=== PATIENT | male | born 1955 | race Caucasian/White ===

== ENCOUNTER 2017-12-15 12:46 | Inpatient (IN) | payer SELFPAY ==
[2017-12-15 14:05] LABS: Troponin I 0.011 ng/mL (< 0.028)
[2017-12-15 17:43] LABS: Troponin I 0.016 ng/mL (< 0.028)
[2017-12-15] MEDS ORDERED: Ondansetron ODT 4 MG TAB PO PRN (18:55)
[2017-12-15] MEDS ORDERED: Dextrose 50% Abboject 50 ML SYRINGE SLOW IVP PRN (18:55)
[2017-12-15] MEDS ORDERED: hydrALAZINE 20 MG/ML VIAL SLOW IVP PRN (18:55)
[2017-12-15] MEDS ORDERED: Dextrose 5% in Water 1,000 ML IV PRN (18:55)
[2017-12-15] MEDS ORDERED: Ondansetron HCl/PF 4 MG/2 ML Vial IVP PRN (18:55)
[2017-12-15] MEDS ORDERED: Acetaminophen 500 MG TAB PO PRN (18:55)
[2017-12-15] MEDS ORDERED: HumaLOG 300 UNITS/3 ML VIAL SC PRN ×2 (18:55)
[2017-12-15] MEDS: Famotidine 20 MG TAB PO SCH (20:57)
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
[2017-12-16] MEDS: cloNIDine 0.1 MG TAB PO PRN ×2 (00:01→09:21)
[2017-12-16 05:25] LABS: Hemoglobin A1c 6.2 % (4.0-6.0)
[2017-12-16 05:38] LABS: Eosinophils 2 % (0-10); Hemoglobin 15.2 g/dL (14.0-18.0); Lymphocytes 26 % (21-51); MDiff Complete? YES; Mean Corpuscular Volume 94.4 fL (78.0-98.0); Mean Platelet Volume 6.9 fL (7.4-10.4); Monocytes 11 % (0-10); Neutrophil 60 % (42-75); Nucleated RBC 1 % (0); PLT Morphology Comment Appears Adequate; Platelet Count 166 thou/uL (130-400); RBC Distribution Width 13.5 % (11.5-14.5); Red Blood Cell (RBC) Count 4.61 mill/uL (4.70-6.10); White Blood Cell (WBC) Count 6.3 thou/uL (4.8-10.8)
[2017-12-16 05:46] LABS: ALT (SGPT) 59 U/L (8-55); AST (SGOT) 45 U/L (5-34); Albumin 3.8 g/dL (3.4-4.8); Alkaline Phosphatase 60 U/L (40-150); Anion Gap 14 mmol/L (10-20); BUN (Urea Nitrogen) 15 mg/dL (8.4-25.7); Bilirubin, Total 1.2 mg/dL (0.2-1.2); Calc. Creatinine Clearance 169 mL/min (70-130); Calcium 8.9 mg/dL (7.8-10.44); Carbon Dioxide 28 mmol/L (23-31); Chloride 101 mmol/L (98-107); Estimated GFR-MDRD 84; Globulin 2.6 g/dL (2.4-3.5); Glucose 126 mg/dL (80-115); Protein, Total 6.4 g/dL (5.8-8.1); Sodium 139 mmol/L (136-145)
[2017-12-16 06:24] VITALS: BMI 42.2
[2017-12-16] MEDS: Furosemide 20 MG/2 ML VIAL SLOW IVP SCH ×2 (06:24→14:09)
[2017-12-16] MEDS ORDERED: Regadenoson 0.4 MG/5 ML SYRINGE ONE (08:06)
[2017-12-16] MEDS: Aspirin 325 MG TAB PO SCH (09:21)
[2017-12-16] MEDS: Famotidine 20 MG TAB PO SCH ×2 (09:21→20:46)
--- NOTE | 2017-12-16 14:59 | NM ---
NUCLEAR MEDICINE STRESS ONLY MYOCARDIAL PERFUSION SCAN: Date: 12-16-17 History: Chest pain, history of coronary artery disease. Technique: SPECT imaging of the left ventricular myocardium is obtained during stress following the i ntravenous administration of 28.1 mCi Technetium 99M Sestamibi. FINDINGS: No perfusion defect is seen on the SPECT imaging of the left ventricular myocardium. Left ventricular wall motion appears normal. Left ventricular ejection fraction is estimated at 56% with an EDV of 19 1 ml and an ESV of 85 ml. IMPRESSION: Unremarkable stress only Nuclear Medicine myocardial perfusion scan. POS: [facility]
--- NOTE | 2017-12-16 15:35 | PDOC.PN ---
- Subjective Encounter Start Date: 12/16/17 Encounter Start Time: 15:35 Subjective: f/u for new-onset pulmonary edema tx with Lasix now resolving. 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 Feels much better today. No SOB. - Objective Resuscitation Status: Resuscitation Status FULL:Full Resuscitation MAR Reviewed: Yes Vital Signs & Weight: Vital Signs (12 hours) Temp Pulse Resp BP BP Pulse Ox 12/16/17 09:21 216/99 H 12/16/17 08:56 98.5 F 59 L 18 216/99 H 98 12/16/17 08:00 98.5 F 59 L 18 98 12/16/17 04:22 57 L 218/106 H 12/16/17 04:00 97.5 F L 57 L 20 218/106 H 97 Weight Weight 311 lb 4.8 oz I&O: 12/15/17 12/16/17 12/17/17 06:59 06:59 06:59 Intake Total 300 Output Total 550 Balance -250 Result Diagrams: 12/16/17 05:00 12/16/17 05:00 Additional Labs: Accuchecks 12/16/17 12/16/17 12/15/17 12:46 05:44 20:34 POC Glucose 197 H 127 H 165 H Laboratory Tests 12/15/17 12/15/17 12/16/17 10:34 10:34 05:00 Hemoglobin A1c AST 51 H 45 H ALT 71 H 59 H B-Natriuretic Peptide 455.1 H 12/16/17 12/16/17 05:00 05:00 Hemoglobin A1c 6.2 H AST ALT B-Natriuretic Peptide 658.9 H Radiology Reviewed by me: Yes (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, EF 56%) EKG Reviewed by me: Yes (Tele - SR) Phys Exam - Physical Examination Constitutional: NAD HEENT: PERRLA, sclera anicteric, oral pharynx no lesions Neck: no nodes, no JVD, supple, full ROM Respiratory: no wheezing, no rales, no rhonchi, clear to auscultation bilateral S1, S2 Cardiovascular: RRR, no significant murmur, no rub, gallop Gastrointestinal: soft, non-tender, no distention, positive bowel sounds mild edema Musculoskeletal: pulses present Neurological: non-focal, normal sensation, moves all 4 limbs Psychiatric: normal affect, A&O x 3 Skin: no rash, normal turgor, cap refill <2 seconds Dx/Plan (1) New onset of congestive heart failure Code(s): I50.9 - HEART FAILURE, UNSPECIFIED Status: Acute Comment: 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, convert Lasix 40mg daily, 2D echo pending (2) HTN (hypertension) Code(s): I10 - ESSENTIAL (PRIMARY) HYPERTENSION Status: Chronic Qualifiers: Hypertension type: essential hypertension Qualified Code(s): I10 - Essential (primary) hypertension Comment: Labile, resume home BP regimen, titrate to clinical response (3) DM II (diabetes mellitus, type II), controlled Code(s): E11.9 - TYPE 2 DIABETES MELLITUS WITHOUT COMPLICATIONS Status: Chronic Comment: Resume Metformin, ISS, ADA, A1C 6.2 (4) CAD (coronary artery disease) Code(s): I25.10 - ATHSCL HEART DISEASE OF [place] CORONARY ARTERY W/O ANG PCTRS Status: Chronic Comment: Hx of CAD by LHC, medical mgmt, ASA daily - Plan out of bed/ambulate, DVT proph w/SCDs Stable overall -: Resume home antihypertensive regimen -: Change Lasix 40mg daily -: Continue ASA daily -: AM lab: Lipid profile, BMP * .
[2017-12-16] MEDS ORDERED: metFORMIN 850 MG TAB PO SCH (17:00)
--- NOTE | 2017-12-16 20:56 | CT ---
CTA ABDOMEN WITH CONTRAST WITH 3D VOLUME RENDERIN12/16/17 CLINICAL HISTORY: Pulmonary edema. Renal artery insufficiency. FINDINGS: The imaged lower lung zones reveal no evidence of consolidation. There is no pleural effusion visuali zed. The contrast opacified abdominal aorta is nonaneurysmal. There is mild calcification approximating th e origin of the celiac axis and superior mesenteric artery. There is minimal atherosclerosis at the o rigin of the left renal artery, but otherwise, no significant stenosis of either renal artery. The im aged proximal iliac arteries are patent. Nonspecific borderline sized abdominal lymph nodes are prese nt. IMPRESSION: There is no evidence of renal artery stenosis, bilaterally. Scattered atherosclerotic vascular disease as discussed above. POS: [facility]
[2017-12-16] MEDS ORDERED: Metoprolol Tartrate 100 MG TAB PO SCH (21:00)
[2017-12-16] MEDS ORDERED: Atorvastatin Calcium 40 MG TAB PO SCH (21:00)
[2017-12-16] MEDS ORDERED: Lisinopril 20 MG TAB PO SCH (21:00)
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
[2017-12-17] MEDS: cloNIDine 0.1 MG TAB PO PRN (03:41)
[2017-12-17 05:35] LABS: Anion Gap 14 mmol/L (10-20); BUN (Urea Nitrogen) 13 mg/dL (8.4-25.7); Calc. Creatinine Clearance 161 mL/min (70-130); Calcium 8.8 mg/dL (7.8-10.44); Carbon Dioxide 25 mmol/L (23-31); Cardiac Risk 6.9 (Less than 4.5); Chloride 100 mmol/L (98-107); Cholesterol 241 mg/dl (< 200 Desired); Estimated GFR-MDRD 81; Glucose 133 mg/dL (80-115); HDL Cholesterol 35 mg/dL (>60 Neg Risk); LDL Cholesterol, Calculated 169 mg/dL; Potassium 3.4 mmol/L (3.5-5.1); Sodium 136 mmol/L (136-145); Triglycerides 186 mg/dL (Less than 150)
[2017-12-17] MEDS ORDERED: Furosemide 40 MG TAB PO SCH (07:30)
[2017-12-17] MEDS ORDERED: metFORMIN 850 MG TAB PO SCH (08:00)
[2017-12-17] MEDS ORDERED: Carvedilol 6.25 MG TAB PO SCH (08:00)
[2017-12-17] MEDS: Aspirin 325 MG TAB PO SCH (08:01)
[2017-12-17] MEDS: Famotidine 20 MG TAB PO SCH (08:01)
[2017-12-17] MEDS ORDERED: Ubidecarenone 50 MG CAP PO SCH (09:00)
[2017-12-17] MEDS ORDERED: Potassium Chloride 20 MEQ TAB PO SCH (10:00)
[2017-12-17] MEDS ORDERED: hydrALAZINE 25 MG TAB PO SCH ×2 (10:00→21:00)
[2017-12-17 11:12] VITALS: TEMP 97.6
[2017-12-17 13:44] VITALS: BP 137/71
--- NOTE | 2017-12-17 14:09 | DIS ---
DATE OF ADMISSION: 12/15/2017 DATE OF DISCHARGE: 12/17/2017 DISCHARGE DIAGNOSES: 1. New onset diastolic congestive heart failure with ejection fraction of 50-55%. 2. Hypertension urgency, resolved. 3. Hypertension, labile. 4. Diabetes mellitus type 2, controlled. 5. Coronary artery disease, mild, medically managed. CONSULTATIONS: Dr. Quinones with Cardiology Service. PERTINENT LABORATORY AND X-RAY FINDINGS: Potassium ranged between 3.4-4.0, hemoglobin A1c 6.2, BNP r anged between 455-659, total cholesterol 241, triglycerides 186, HDL 35, LDL 169. Portable chest x-ray dated 12/15/2017 showed bilateral pulmonary edema. Cardiolite stress test dated 12/16/2017 showed no evidence of reversible or fixed ischemia with calculated ejection fraction 56%. CT angiogram of the abdomen dated 12/16/2017 showed no evidence of renal artery stenosis. A 2D tra nsthoracic echocardiogram dated 12/16/2017 showed ejection fraction of 50-55%. Diastolic dysfunction . Moderate left atrial enlargement. 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 The patient was given IV Lasix as well as oxygen supplementation and monitored for clinic al response. The patient had rapid clinical improvement with diuretic therapy proceeding with a card iac workup to include cardiac stress testing showing no evidence for reversible or fixed ischemia. T he patient underwent 2D transthoracic echocardiogram evaluation showing preserved ejection fraction i n the 50-55% range with diastolic dysfunction. The patient was evaluated by the Cardiology Service [facility] recommendations for tighter blood pressure control as well as treatment for hyperlipidemia. The patient was transitioned from metoprolol to Coreg due to sinus bradycardia and received additional hy dralazine 50 mg b.i.d. for more optimal blood pressure control. The patient transitioned to oral Las ix 40 mg daily, and will continue indefinitely. Overall, the patient did remain clinically stable du ring the hospital course, tolerating regular oral intake, voiding appropriately. Telemetry monitorin g showed sinus bradycardia with heart rates in the 50s to 60s without acute arrhythmia. I have exami yobani the patient at the discharge and discussed followup instructions, at which point the patient verb alized understanding and agreement. The patient ready for discharge 12/17/2017. DISCHARGE MEDICATIONS: 1. Lisinopril 40 mg p.o. at bedtime. 2. Metformin 850 mg p.o. b.i.d. 3. Omeprazole 2.5 mg p.o. at bedtime. 4. Coenzyme Q10 100 mg p.o. daily. 5. Lipitor 40 mg p.o. at bedtime. 6. Coreg 12.5 mg p.o. b.i.d. 7. Lasix 40 mg p.o. daily. 8. Hydralazine 50 mg p.o. b.i.d. 9. Potassium chloride 20 mEq p.o. b.i.d. FOLLOWUP: The patient will follow up with Dr. Chiang within 7 days of discharge. The patient cecil l follow up with Dr. Carmelo Quinones with [facility] and to call his office for appointment time and date. CONDITION ON DISCHARGE: Stable. ACTIVITY: Ad amauri. DIET: Heart healthy and ADA. CODE STATUS: Full. DISPOSITION: Home on 12/17/2017. Total time preparing and coordinating discharge is 35 minutes.
--- NOTE | 2017-12-19 10:59 | EKG ---
Test Reason : Blood Pressure : / mmHG Vent. Rate : 054 BPM Atrial Rate : 054 BPM P-R Int : 178 ms QRS Dur : 098 ms QT Int : 452 ms P-R-T Axes : 028 021 068 degrees QTc Int : 428 ms Sinus bradycardia Incomplete right bundle branch block Borderline ECG Confirmed by CLEO MANJARREZ DO ([id number]), managing editor STEVENSON ALFREDO ([id number]) on 12/19/2017 10:58:26 AM Referred By: Confirmed By:CLEO MANJARREZ DO
== END 2017-12-17 15:21 | disposition home or self-care (01) | DRG 292 ==
LOC: ERS 12:46 → 2NO 18:09
PROVIDERS: ADMIT Family Medicine; ATTEND Family Medicine
DX: I11.0 Hypertensive heart disease with heart failure (principal); Z68.41 Body mass index [BMI] 40.0-44.9, adult; I50.33 Acute on chronic diastolic (congestive) heart failure; I16.0 Hypertensive urgency; E11.9 Type 2 diabetes mellitus without complications; Z79.4 Long term (current) use of insulin; I25.10 Atherosclerotic heart disease of native coronary artery without angina pectoris; B19.20 Unspecified viral hepatitis C without hepatic coma; E66.9 Obesity, unspecified; E78.00 Pure hypercholesterolemia, unspecified; R00.1 Bradycardia, unspecified
CPT/HCPCS: 36415; 36416; 74175; 78452; 80048; 80053; 80061; 83036; 83880; 85007; 85027; 90471; 90732; 93005; 93017; 93306; 93798; 94760; A4216; A9500; G0009; J0360; J1940; J2785

== ENCOUNTER 2018-01-21 11:06 | Inpatient (IN) | payer SELFPAY ==
[2018-01-21] MEDS ORDERED: ISOVUE-370 76%-LOCM 1 ML ONE (11:14)
[2018-01-21 12:27] LABS: #Basophils 0.1 thou/uL (0.0-0.2); #Eosinphils 0.6 thou/uL (0.0-0.7); #Lymphocytes 1.8 thou/uL (1.20-3.40); #Neutrophils 6.7 thou/uL (1.40-6.50); %Basophils 0.8 % (0.0-1.0); %Eosinophils 5.8 % (0.0-10.0); %Lymphocytes 17.9 % (21.0-51.0); %Monocytes 9.5 % (0.0-10.0); %Neutrophils 66.1 % (42.0-75.0); Hemoglobin 14.9 g/dL (14.0-18.0); Mean Corpuscular Hemoglobin 31.4 pg (27.0-31.0); Mean Corpuscular Volume 95.1 fL (78.0-98.0); Mean Platelet Volume 6.8 fL (7.4-10.4); Platelet Count 269 thou/uL (130-400); RBC Distribution Width 13.3 % (11.5-14.5); Red Blood Cell (RBC) Count 4.76 mill/uL (4.70-6.10); White Blood Cell (WBC) Count 10.2 thou/uL (4.8-10.8)
[2018-01-21 12:50] LABS: Troponin I Less than 0.010 ng/mL (< 0.028)
[2018-01-21 12:51] LABS: ALT (SGPT) 37 U/L (8-55); AST (SGOT) 34 U/L (5-34); Albumin 4.2 g/dL (3.4-4.8); Alkaline Phosphatase 68 U/L (40-150); Anion Gap 16 mmol/L (10-20); BUN (Urea Nitrogen) 28 mg/dL (8.4-25.7); Bilirubin, Total 0.6 mg/dL (0.2-1.2); Calc. Creatinine Clearance 0 mL/min (70-130); Calcium 9.7 mg/dL (7.8-10.44); Carbon Dioxide 21 mmol/L (23-31); Chloride 104 mmol/L (98-107); Estimated GFR-MDRD 57; Globulin 3.7 g/dL (2.4-3.5); Glucose 146 mg/dL (80-115); Potassium 5.3 mmol/L (3.5-5.1); Protein, Total 7.9 g/dL (5.8-8.1); Sodium 136 mmol/L (136-145)
[2018-01-21] MEDS ORDERED: Aspirin 325 MG TAB ONE (13:07)
--- NOTE | 2018-01-21 13:31 | CT ---
HEAD CT WITHOUT CONTRAST: Date: 01/21/18 COMPARISON: 08/10/15. HISTORY: Dizziness, blurred vision, left hand weakness for a week, headache, assess for stroke. TECHNIQUE: Serial axial CT imaging at 5 mm intervals from vertex through skull base without contrast. FINDINGS: The visualized paranasal sinuses/mastoid air cells are well aerated. No displaced calvarial fracture. No intracranial hemorrhage, midline shift, mass effect, or ventricular enlargement. IMPRESSION: No intracranial hemorrhage. Results called to Dr. Villeda at 1227 hours on 01/21/18. CODE CR. POS: [facility]
[2018-01-21 13:33] LABS: Bilirubin Negative (Negative); Blood, Urine Negative (Negative); Clarity CLEAR (Clear); Glucose, Urine (Dipstick) Negative (Negative); Leukocyte Negative (Negative); Nitrite Negative (Negative); Protein, Urine (Dipstick) Negative (Neg-Trace); Specific Gravity, Urine 1.025 (1.002-1.036)
--- NOTE | 2018-01-21 14:17 | CT ---
CT ANGIOGRAM OF THE HEAD CT ANGIOGRAM OF THE NECK: Date: 01/21/18 HISTORY: Blurred vision. Dizziness. Roaring in the ears. Left hand weakness. COMPARISON: None. TECHNIQUE: CT angiogram of the head and neck are performed in the axial plane. Three-dimensional reformatted micheal ges are submitted for interpretation. FINDINGS: There is preservation of cortical corona-white matter differentiation. No evidence of hydrocephalus. Adequate aeration of the sinuses and mastoid air cells. Bilateral ocular lenses are appropriately loc ated. Both globes are intact. Retrobulbar fat is preserved. Aerodigestive tract is patent. No obvious mucosal abnormality. Midline fatty raphe of the tongue is p reserved. Epiglottis has a normal caliber. Preepiglottic fat is preserved. Symmetric attenuation of the parotid and submandibular glands. Thyroid gland is unremarkable. Symmetr ic attenuation of the sternocleidomastoid muscles. No evidence of lymphadenopathy by size criteria. Cervical spine vertebral body height is maintained. No fracture. Degenerative disc disease with loss of disc space height and osteophyte formation with associated central canal stenosis and foraminal na rrowing. Evaluation is limited by technique. Upper mediastinum and lung apices are unremarkable. CT ANGIOGRAM: The visualized aortic arch is unremarkable. There is common origin of the innominate artery and left carotid artery. Right Carotid: The right carotid artery, carotid bifurcation, and internal carotid artery have appro priate enhancement and luminal diameter. No significant stenosis based upon NASCET criteria. Left Carotid: The left common carotid artery, carotid bifurcation, and internal carotid artery have appropriate enhancement and luminal diameter. No significant stenosis based upon NASCET criteria. Both cervical vertebral arteries are patent throughout their course of the neck. Bilateral subclavian arteries are unremarkable. CT ANGIOGRAM HEAD: There is symmetric enhancement and luminal diameter of the distal cervical and intracranial internal carotid arteries. Mild atherosclerosis without significant narrowing in both cavernous segments and p araclinoid segments. Anterior Circulation: There is symmetric enhancement and luminal diameter of the A1 and M1 segments. Proximal A2 segments and proximal MCA branches are patent and symmetric. Posterior Circulation: Limited evaluation of both PICA artery origins. Both vertebral arteries have appropriate enhancement and luminal diameter. Basilar artery has appropriate enhancement and luminal diameter. The left and right P1 segments have symmetric enhancement and luminal diameter. There is possible thinning or dehiscence of the right jugular bulb. Neither jugular bulb appears to b e high-riding. IMPRESSION: 1. No evidence of vascular occlusion in the [place]. 2. No evidence of significant stenosis based upon NASCET criteria in either cervical carotid artery. 3. Possible dehiscence of the right jugular bulb. Results of exam discussed with Dr. Villeda on 01/21/18 at 1256 hours. CODE CR. POS: [facility]
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
[2018-01-21] MEDS ORDERED: Ondansetron ODT 4 MG TAB SL PRN (15:15)
[2018-01-21] MEDS ORDERED: Ondansetron HCl/PF 4 MG/2 ML Vial IVP PRN ×2 (15:15→15:19)
[2018-01-21] MEDS ORDERED: Acetaminophen 325 MG TAB PO PRN (15:15)
[2018-01-21] MEDS ORDERED: hydrALAZINE 20 MG/ML VIAL SLOW IVP PRN (15:19)
[2018-01-21] MEDS ORDERED: Zolpidem Tartrate 5 MG TAB PO PRN (15:19)
[2018-01-21] MEDS ORDERED: Dextrose 5% in Water 1,000 ML IV PRN (15:19)
[2018-01-21] MEDS ORDERED: Senokot 8.6 MG TAB PO PRN (15:19)
[2018-01-21] MEDS ORDERED: Artificial Tears 18 DROP/0.9 ML EA EYE PRN (15:19)
[2018-01-21] MEDS ORDERED: Loperamide HCl 2 MG CAP PO PRN (15:19)
[2018-01-21] MEDS ORDERED: Dextrose 50% Abboject 50 ML SYRINGE SLOW IVP PRN (15:19)
[2018-01-21] MEDS ORDERED: Nitroglycerin 0.4 MG TAB (25 Tab Bottle) SL PRN (15:19)
[2018-01-21] MEDS ORDERED: Chloraseptic Spray 180 ml Bottle PO PRN (15:19)
[2018-01-21] MEDS ORDERED: Sodium Chloride 0.65% Nasal 44 ML BOT EA NARE PRN (15:19)
[2018-01-21] MEDS ORDERED: Diabetic Tussin 200 MG/10 ML UDCUP PO PRN (15:19)
[2018-01-21] MEDS ORDERED: HYDROcodone/Acetaminophen 5/325 mg Tablet PO PRN (15:19)
[2018-01-21] MEDS ORDERED: HumaLOG 300 UNITS/3 ML VIAL SC PRN (15:19)
[2018-01-21] MEDS ORDERED: Ondansetron ODT 4 MG TAB PO PRN (15:19)
[2018-01-21] MEDS ORDERED: Milk Of Magnesia 30 ML UDCUP PO PRN (15:19)
[2018-01-21] MEDS ORDERED: Mag-Al 1200 mg/1200 mg/30 ML UDCUP PO PRN (15:19)
[2018-01-21] MEDS ORDERED: Loratadine 10 MG TAB PO PRN (15:19)
[2018-01-21] MEDS ORDERED: Eucerin (Mineral Oil/Petrolatum,White) 30 gm Jar TOP PRN (15:19)
[2018-01-21] MEDS: Carvedilol 6.25 MG TAB PO SCH (19:34)
[2018-01-21 19:36] VITALS: BMI 41.1
[2018-01-21] MEDS: Meclizine HCl 25 MG TAB PO SCH (21:02)
[2018-01-21] MEDS: Atorvastatin Calcium 40 MG TAB PO SCH (21:02)
[2018-01-21] MEDS: hydrALAZINE 25 MG TAB PO SCH (21:03)
[2018-01-22] MEDS: Acetaminophen 325 MG TAB PO PRN ×3 (04:14→14:02)
[2018-01-22] MEDS: Meclizine HCl 25 MG TAB PO SCH ×3 (05:36→20:43)
[2018-01-22 06:03] LABS: Anion Gap 12 mmol/L (10-20); BUN (Urea Nitrogen) 21 mg/dL (8.4-25.7); Calc. Creatinine Clearance 130 mL/min (70-130); Calcium 9.3 mg/dL (7.8-10.44); Carbon Dioxide 27 mmol/L (23-31); Cardiac Risk 5.1 (Less than 4.5); Chloride 104 mmol/L (98-107); Cholesterol 159 mg/dl (< 200 Desired); Estimated GFR-MDRD 64; Glucose 147 mg/dL (80-115); HDL Cholesterol 31 mg/dL (>60 Neg Risk); LDL Cholesterol, Calculated 69 mg/dL; Potassium 4.1 mmol/L (3.5-5.1); Sodium 139 mmol/L (136-145); Triglycerides 296 mg/dL (Less than 150)
[2018-01-22 06:13] LABS: #Eosinphils 0.6 thou/uL (0.0-0.7); #Lymphocytes 1.5 thou/uL (1.20-3.40); #Monocytes 0.8 thou/uL (0.11-0.59); %Basophils 0.5 % (0.0-1.0); %Neutrophils 63.6 % (42.0-75.0); Mean Corpuscular HGB CONC 32.5 g/dL (32.0-36.0); Mean Corpuscular Hemoglobin 30.5 pg (27.0-31.0); Mean Platelet Volume 6.6 fL (7.4-10.4); Platelet Count 214 thou/uL (130-400); RBC Distribution Width 13.1 % (11.5-14.5); Red Blood Cell (RBC) Count 4.58 mill/uL (4.70-6.10); White Blood Cell (WBC) Count 7.9 thou/uL (4.8-10.8)
[2018-01-22] MEDS: Enoxaparin Sodium 40 MG/0.4 ML SYRINGE SC SCH (08:46)
[2018-01-22] MEDS: Furosemide 40 MG TAB PO SCH (08:48)
[2018-01-22] MEDS: Ubidecarenone 50 MG CAP PO SCH (08:49)
[2018-01-22] MEDS: Lisinopril 20 MG TAB PO SCH (08:49)
[2018-01-22] MEDS: Aspirin 325 mg Enteric Coated Tablet PO SCH (08:51)
[2018-01-22] MEDS: hydrALAZINE 25 MG TAB PO SCH ×3 (08:51→20:39)
[2018-01-22] MEDS ORDERED: Amlodipine 5 MG TAB PO SCH (09:30)
[2018-01-22] MEDS: Carvedilol 6.25 MG TAB PO SCH ×2 (10:32→18:29)
--- NOTE | 2018-01-22 10:57 | PDOC.PN ---
- Subjective Encounter Start Date: 01/22/18 Encounter Start Time: 07:00 -: old records requested/rev still feels same, but somewhat steady today, no fall, has vertigo and blurred vision - Objective Resuscitation Status: Resuscitation Status FULL:Full Resuscitation MAR Reviewed: Yes Vital Signs & Weight: Vital Signs (12 hours) Temp Pulse Resp BP BP Pulse Ox 01/22/18 10:32 182/86 H 01/22/18 10:30 54 L 01/22/18 08:51 54 L 01/22/18 08:49 182/86 H 01/22/18 07:53 97.7 F 54 L 16 182/86 H 95 01/22/18 04:49 50 L 172/87 H 01/22/18 02:55 97.9 F 57 L 16 187/84 H 97 01/21/18 23:19 98.1 F 56 L 16 147/68 H 97 Weight Weight 303 lb Result Diagrams: 01/22/18 05:28 01/22/18 05:28 Additional Labs: Accuchecks 01/22/18 01/22/18 01/21/18 10:35 05:51 21:04 POC Glucose 196 H 148 H 117 H 01/21/18 12:16 POC Glucose 160 H EKG Reviewed by me: Yes (nsr) Phys Exam - Physical Examination Constitutional: NAD HEENT: PERRLA, moist MMs, sclera anicteric Neck: no JVD, supple Respiratory: no wheezing, no rales, no rhonchi Cardiovascular: RRR, no significant murmur, no rub Gastrointestinal: soft, non-tender, no distention, positive bowel sounds morbid obesity Musculoskeletal: no edema, pulses present Neurological: non-focal, normal sensation, moves all 4 limbs nystegmus+ Lymphatic: no nodes Psychiatric: normal affect, A&O x 3 Skin: no rash, normal turgor Dx/Plan (1) Cerebellar dysfunction Code(s): G93.40 - ENCEPHALOPATHY, UNSPECIFIED Status: Suspected Comment: DD BPPV or labyrhynthitis (2) Hyperkalemia Code(s): E87.5 - HYPERKALEMIA Status: Acute (3) CAD (coronary artery disease) Code(s): I25.10 - ATHSCL HEART DISEASE OF [place] CORONARY ARTERY W/O ANG PCTRS Status: Chronic Comment: (4) CKD (chronic kidney disease) stage 3, GFR 30-59 ml/min Code(s): N18.3 - CHRONIC KIDNEY DISEASE, STAGE 3 (MODERATE) Status: Chronic (5) Chronic stage c diastolic heart failure Code(s): I50.32 - CHRONIC DIASTOLIC (CONGESTIVE) HEART FAILURE Status: Chronic (6) DM II (diabetes mellitus, type II), controlled Code(s): E11.9 - TYPE 2 DIABETES MELLITUS WITHOUT COMPLICATIONS Status: Chronic Comment: (7) Dyslipidemia Code(s): E78.5 - HYPERLIPIDEMIA, UNSPECIFIED Status: Chronic (8) GERD (gastroesophageal reflux disease) Code(s): K21.9 - GASTRO-ESOPHAGEAL REFLUX DISEASE WITHOUT ESOPHAGITIS Status: Chronic (9) HTN (hypertension) Code(s): I10 - ESSENTIAL (PRIMARY) HYPERTENSION Status: Chronic Qualifiers: Comment: (10) Morbid obesity with BMI of 40.0-44.9, adult Code(s): E66.01 - MORBID (SEVERE) OBESITY DUE TO EXCESS CALORIES; Z68.41 - BODY MASS INDEX (BMI) 40.0-44.9, ADULT Status: Chronic - Plan cont current plan of care, PT/OT * MRI pending * neurology consulted * medication reviewed as below * symptomatic treatment * PT * continue antivert. * change hydralazin 50 mg tid * reduce coreg to 6.25 mg bid for bradycardia * add amlodipine Review of Systems - Review of Systems Eyes: Vision Change. negative: Pain, Conjunctivae Inflammation, Eyelid Inflammation, Redness, Other ENT: negative: Ear Pain, Ear Discharge, Nose Pain, Nose Discharge, Nose Congestion, Mouth Pain, Mouth Swelling, Throat Pain, Throat Swelling, Other Respiratory: negative: Cough, Dry, Shortness of Breath, Hemoptysis, SOB with Excertion, Pleuritic Pain, Sputum, Wheezing Cardiovascular: light headedness. negative: chest pain, palpitations, orthopnea , paroxysmal nocturnal dyspnea, edema, other Gastrointestinal: negative: Nausea, Vomiting, Abdominal Pain, Diarrhea, Constipation, Melena, Hematochezia, Other Genitourinary: negative: Dysuria, Frequency, Incontinence, Hematuria, Retention , Other Musculoskeletal: negative: Neck Pain, Shoulder Pain, Arm Pain, Back Pain, Hand Pain, Leg Pain, Foot Pain, Other Skin: negative: Rash, Lesions, Samuel, Bruising, Other Neurological: Other (vertigo) - Medications/Allergies Allergies/Adverse Reactions: Allergies Allergy/AdvReac Type Severity Reaction Status Date / Time No Known Allergies Allergy Verified 01/21/18 19:54 Medications: Current Medications Acetaminophen (Tylenol) 650 mg PO Q4H PRN PRN Reason: Headache/Fever or Pain Last Admin: 01/22/18 08:50 Dose: 650 mg Hydrocodone Bitart/Acetaminophen ([place] 5/325) 1 tab PO Q4H PRN PRN Reason: Moderate Pain (4-6) Al Hydroxide/Mg Hydroxide (Maalox) 30 ml PO Q6H PRN PRN Reason: Heartburn or Indigestion Amlodipine Besylate (Norvasc) 5 mg PO DAILY [facility] Amlodipine Besylate (Norvasc) 5 mg PO NOW [facility] Stop: 01/22/18 12:00 Last Admin: 01/22/18 10:30 Dose: 5 mg Artificial Tears (Tears Naturale) 0 drop EA EYE PRN PRN PRN Reason: Dry Eyes Aspirin (Ecotrin) 325 mg PO DAILY [facility] Last Admin: 01/22/18 08:51 Dose: 325 mg Atorvastatin Calcium (Lipitor) 40 mg PO [facility] Last Admin: 01/21/18 21:02 Dose: 40 mg Carvedilol (Coreg) 6.25 mg PO BID-[facility] Coenzyme Q10 (Coenzyme Q10) 100 mg PO DAILY [facility] Last Admin: 01/22/18 08:49 Dose: 100 mg Dextrose/Water (Dextrose 50%) 25 gm SLOW IVP PRN PRN PRN Reason: Hypoglycemia Enoxaparin Sodium (Lovenox) 40 mg SC 0900 [facility] Last Admin: 01/22/18 08:46 Dose: 40 mg Furosemide (Lasix) 40 mg PO DAILY-AC [facility] Last Admin: 01/22/18 08:48 Dose: 40 mg Glucagon (Glucagon) 1 mg IM PRN PRN PRN Reason: Hypoglycemia Guaifenesin (Robitussin Sf) 200 mg PO Q4H PRN PRN Reason: Cough Hydralazine HCl (Apresoline) 10 mg SLOW IVP Q4H PRN PRN Reason: Systolic BP > 180 Hydralazine HCl (Apresoline) 50 mg PO TID [facility] Dextrose/Water (D5w) 1,000 mls @ 0 mls/hr IV .Q0M PRN PRN Reason: Hypoglycemia Insulin Human Lispro (Humalog) 0 units SC .MODERATE SLIDING SC PRN PRN Reason: Moderate Correctional Scale Insulin Human Lispro (Humalog) 0 units SC .BEDTIME SLIDING SC PRN PRN Reason: Bedtime Correctional Scale Lisinopril (Zestril) 40 mg PO DAILY [facility] Last Admin: 01/22/18 08:49 Dose: 40 mg Loperamide HCl (Imodium) 2 mg PO PRN PRN PRN Reason: Diarrhea/Loose Stools Loratadine (Claritin) 10 mg PO DAILYPRN PRN PRN Reason: Sinus Symptoms Magnesium Hydroxide (Milk Of Magnesium) 30 ml PO DAILYPRN PRN PRN Reason: Constipation Meclizine HCl (Antivert) 25 mg PO Q8HR [facility] Last Admin: 01/22/18 05:36 Dose: 25 mg Mineral Oil/White Petrolatum (Eucerin Cream) 0 gm TOP BIDPRN PRN PRN Reason: Dry Skin Nitroglycerin (Nitrostat) 0.4 mg SL Q5MIN PRN PRN Reason: Chest Pain Ondansetron HCl (Zofran Odt) 4 mg PO Q6H PRN PRN Reason: Nausea/Vomiting Ondansetron HCl (Zofran) 4 mg IVP Q6H PRN PRN Reason: Nausea/Vomiting Pantoprazole Sodium (Protonix) 40 mg PO 2100 [facility] Last Admin: 01/21/18 21:02 Dose: 40 mg Phenol (Chloraseptic [place] 180 Ml Bot) 0 ml PO PRN PRN PRN Reason: Sore Throat Senna (Senokot) 2 tab PO HSPRN PRN PRN Reason: Constipation Sodium Chloride ([place] Nasal [place] 0.65%) 0 ml EA NARE QIDPRN PRN PRN Reason: Nasal Congestion Zolpidem Tartrate (Ambien) 5 mg PO HSPRN PRN PRN Reason: Insomnia
[2018-01-22] MEDS: HumaLOG 300 UNITS/3 ML VIAL SC PRN ×2 (14:00→18:26)
[2018-01-22] MEDS: Atorvastatin Calcium 40 MG TAB PO SCH (20:39)
[2018-01-23] MEDS: Acetaminophen 325 MG TAB PO PRN ×3 (03:41→12:31)
[2018-01-23] MEDS: Meclizine HCl 25 MG TAB PO SCH ×2 (05:44→14:04)
[2018-01-23] MEDS: Enoxaparin Sodium 40 MG/0.4 ML SYRINGE SC SCH (07:57)
[2018-01-23] MEDS: Lisinopril 20 MG TAB PO SCH (07:58)
[2018-01-23] MEDS: Ubidecarenone 50 MG CAP PO SCH (07:59)
[2018-01-23] MEDS: hydrALAZINE 25 MG TAB PO SCH ×2 (08:00→17:59)
[2018-01-23] MEDS: Furosemide 40 MG TAB PO SCH (08:00)
[2018-01-23] MEDS: Aspirin 325 mg Enteric Coated Tablet PO SCH (08:00)
[2018-01-23] MEDS: Carvedilol 6.25 MG TAB PO SCH ×2 (08:01→18:01)
[2018-01-23] MEDS ORDERED: NIFEdipine XL 30 MG TAB PO SCH (09:00)
[2018-01-23] MEDS ORDERED: Amlodipine 5 MG TAB PO SCH (09:00)
--- NOTE | 2018-01-23 09:48 | PDOC.PN ---
- Subjective Encounter Start Date: 01/23/18 Encounter Start Time: 07:10 Patient seen and examined. No new complaints. No overnight events - Objective Resuscitation Status: Resuscitation Status FULL:Full Resuscitation MAR Reviewed: Yes Vital Signs & Weight: Vital Signs (12 hours) Temp Pulse Resp BP BP Pulse Ox 01/23/18 08:01 156/88 H 01/23/18 08:00 97.8 F 54 L 16 156/88 H 95 01/23/18 07:59 54 L 01/23/18 07:58 156/88 H 01/23/18 03:27 97.8 F 52 L 14 152/86 H 97 01/22/18 23:19 98.0 F 55 L 16 145/78 H 94 L 01/22/18 21:55 177/86 H Weight Weight 303 lb I&O: 01/22/18 01/23/18 01/24/18 06:59 06:59 06:59 Intake Total 720 240 Balance 720 240 Result Diagrams: 01/22/18 05:28 01/22/18 05:28 Additional Labs: Accuchecks 01/23/18 01/22/18 01/22/18 05:43 20:58 17:30 POC Glucose 139 H 133 H 181 H 01/22/18 10:35 POC Glucose 196 H EKG Reviewed by me: Yes Phys Exam - Physical Examination Constitutional: NAD HEENT: PERRLA, moist MMs, sclera anicteric Neck: no JVD, supple Respiratory: no wheezing, no rales, no rhonchi Cardiovascular: RRR, no significant murmur, no rub Gastrointestinal: soft, non-tender, no distention, positive bowel sounds Musculoskeletal: no edema, pulses present Neurological: non-focal, normal sensation, moves all 4 limbs Lymphatic: no nodes Psychiatric: normal affect, A&O x 3 Skin: no rash, normal turgor Dx/Plan (1) Cerebellar dysfunction Code(s): G93.40 - ENCEPHALOPATHY, UNSPECIFIED Status: Suspected Comment: DD BPPV or labyrhynthitis (2) Hyperkalemia Code(s): E87.5 - HYPERKALEMIA Status: Acute (3) CAD (coronary artery disease) Code(s): I25.10 - ATHSCL HEART DISEASE OF [place] CORONARY ARTERY W/O ANG PCTRS Status: Chronic Comment: (4) CKD (chronic kidney disease) stage 3, GFR 30-59 ml/min Code(s): N18.3 - CHRONIC KIDNEY DISEASE, STAGE 3 (MODERATE) Status: Chronic (5) Chronic stage c diastolic heart failure Code(s): I50.32 - CHRONIC DIASTOLIC (CONGESTIVE) HEART FAILURE Status: Chronic (6) DM II (diabetes mellitus, type II), controlled Code(s): E11.9 - TYPE 2 DIABETES MELLITUS WITHOUT COMPLICATIONS Status: Chronic Comment: (7) Dyslipidemia Code(s): E78.5 - HYPERLIPIDEMIA, UNSPECIFIED Status: Chronic (8) GERD (gastroesophageal reflux disease) Code(s): K21.9 - GASTRO-ESOPHAGEAL REFLUX DISEASE WITHOUT ESOPHAGITIS Status: Chronic (9) HTN (hypertension) Code(s): I10 - ESSENTIAL (PRIMARY) HYPERTENSION Status: Chronic Qualifiers: Comment: (10) Morbid obesity with BMI of 40.0-44.9, adult Code(s): E66.01 - MORBID (SEVERE) OBESITY DUE TO EXCESS CALORIES; Z68.41 - BODY MASS INDEX (BMI) 40.0-44.9, ADULT Status: Chronic - Plan cont current plan of care * MRI today * medication reviewed as below * symptomatic treatment. Review of Systems - Review of Systems Eyes: negative: Pain, Vision Change, Conjunctivae Inflammation, Eyelid Inflammation, Redness, Other ENT: negative: Ear Pain, Ear Discharge, Nose Pain, Nose Discharge, Nose Congestion, Mouth Pain, Mouth Swelling, Throat Pain, Throat Swelling, Other Respiratory: negative: Cough, Dry, Shortness of Breath, Hemoptysis, SOB with Excertion, Pleuritic Pain, Sputum, Wheezing Cardiovascular: negative: chest pain, palpitations, orthopnea, paroxysmal nocturnal dyspnea, edema, light headedness, other Gastrointestinal: negative: Nausea, Vomiting, Abdominal Pain, Diarrhea, Constipation, Melena, Hematochezia, Other Genitourinary: negative: Dysuria, Frequency, Incontinence, Hematuria, Retention , Other Musculoskeletal: negative: Neck Pain, Shoulder Pain, Arm Pain, Back Pain, Hand Pain, Leg Pain, Foot Pain, Other Skin: negative: Rash, Lesions, Samuel, Bruising, Other - Medications/Allergies Allergies/Adverse Reactions: Allergies Allergy/AdvReac Type Severity Reaction Status Date / Time No Known Allergies Allergy Verified 01/21/18 19:54 Medications: Current Medications Acetaminophen (Tylenol) 650 mg PO Q4H PRN PRN Reason: Headache/Fever or Pain Last Admin: 01/23/18 07:57 Dose: 650 mg Hydrocodone Bitart/Acetaminophen ([place] 5/325) 1 tab PO Q4H PRN PRN Reason: Moderate Pain (4-6) Last Admin: 01/22/18 20:38 Dose: 1 tab Al Hydroxide/Mg Hydroxide (Maalox) 30 ml PO Q6H PRN PRN Reason: Heartburn or Indigestion Amlodipine Besylate (Norvasc) 5 mg PO DAILY [facility] Last Admin: 01/23/18 07:59 Dose: 5 mg Artificial Tears (Tears Naturale) 0 drop EA EYE PRN PRN PRN Reason: Dry Eyes Aspirin (Ecotrin) 325 mg PO DAILY [facility] Last Admin: 01/23/18 08:00 Dose: 325 mg Atorvastatin Calcium (Lipitor) 40 mg PO [facility] Last Admin: 01/22/18 20:39 Dose: 40 mg Carvedilol (Coreg) 6.25 mg PO BID-[facility] Last Admin: 01/23/18 08:01 Dose: Not Given Coenzyme Q10 (Coenzyme Q10) 100 mg PO DAILY [facility] Last Admin: 01/23/18 07:59 Dose: 100 mg Dextrose/Water (Dextrose 50%) 25 gm SLOW IVP PRN PRN PRN Reason: Hypoglycemia Enoxaparin Sodium (Lovenox) 40 mg SC 0900 [facility] Last Admin: 01/23/18 07:57 Dose: 40 mg Furosemide (Lasix) 40 mg PO DAILY-[facility] Last Admin: 01/23/18 08:00 Dose: 40 mg Glucagon (Glucagon) 1 mg IM PRN PRN PRN Reason: Hypoglycemia Guaifenesin (Robitussin Sf) 200 mg PO Q4H PRN PRN Reason: Cough Hydralazine HCl (Apresoline) 10 mg SLOW IVP Q4H PRN PRN Reason: Systolic BP > 180 Hydralazine HCl (Apresoline) 50 mg PO TID [facility] Last Admin: 01/23/18 08:00 Dose: 50 mg Dextrose/Water (D5w) 1,000 mls @ 0 mls/hr IV .Q0M PRN PRN Reason: Hypoglycemia Insulin Human Lispro (Humalog) 0 units SC .MODERATE SLIDING SC PRN PRN Reason: Moderate Correctional Scale Last Admin: 01/22/18 18:26 Dose: 2 unit Insulin Human Lispro (Humalog) 0 units SC .BEDTIME SLIDING SC PRN PRN Reason: Bedtime Correctional Scale Lisinopril (Zestril) 40 mg PO DAILY [facility] Last Admin: 01/23/18 07:58 Dose: 40 mg Loperamide HCl (Imodium) 2 mg PO PRN PRN PRN Reason: Diarrhea/Loose Stools Loratadine (Claritin) 10 mg PO DAILYPRN PRN PRN Reason: Sinus Symptoms Magnesium Hydroxide (Milk Of Magnesium) 30 ml PO DAILYPRN PRN PRN Reason: Constipation Meclizine HCl (Antivert) 25 mg PO Q8HR [facility] Last Admin: 01/23/18 05:44 Dose: 25 mg Mineral Oil/White Petrolatum (Eucerin Cream) 0 gm TOP BIDPRN PRN PRN Reason: Dry Skin Nitroglycerin (Nitrostat) 0.4 mg SL Q5MIN PRN PRN Reason: Chest Pain Ondansetron HCl (Zofran Odt) 4 mg PO Q6H PRN PRN Reason: Nausea/Vomiting Ondansetron HCl (Zofran) 4 mg IVP Q6H PRN PRN Reason: Nausea/Vomiting Pantoprazole Sodium (Protonix) 40 mg PO 2100 [facility] Last Admin: 01/22/18 20:39 Dose: 40 mg Phenol (Chloraseptic [place] 180 Ml Bot) 0 ml PO PRN PRN PRN Reason: Sore Throat Senna (Senokot) 2 tab PO HSPRN PRN PRN Reason: Constipation Sodium Chloride ([place] Nasal [place] 0.65%) 0 ml EA NARE QIDPRN PRN PRN Reason: Nasal Congestion Zolpidem Tartrate (Ambien) 5 mg PO HSPRN PRN PRN Reason: Insomnia
--- NOTE | 2018-01-23 09:49 | DIS ---
DATE OF ADMISSION: 01/21/2018 DATE OF DISCHARGE: 01/23/2018 PRIMARY CARE PHYSICIAN: Lukasz Chiang M.D. DISCHARGE DISPOSITION: Home. PRIMARY DISCHARGE DIAGNOSES: 1. Dysequilibrium. 2. Hyperkalemia, corrected. SECONDARY DISCHARGE DIAGNOSES: Morbid obesity with body mass index 41, hypertension, gastroesophagea l reflux disease, dyslipidemia, chronic kidney disease stage 3, chronic diastolic heart failure stage C, coronary artery disease. PRIMARY PROCEDURE/OPERATION: None. RADIOLOGICAL INVESTIGATION: CT angiography with perfusion study. Head and neck was negative for any acute process. CT brain negative for any acute process. SIGNIFICANT LABORATORY DATA: WBC 7.9, hemoglobin 14.0, platelet 214. Sodium 139, creatinine 1.16. Electrolytes normal. LDL 69. LFT normal. Cardiac enzymes negative. Urinalysis normal. DISCHARGE MEDICATIONS: Isosorbide dinitrate 30 mg p.o. b.i.d., metformin 850 mg p.o. b.i.d., Antiver t 25 mg p.o. q.8 hourly p.r.n., aspirin 325 mg p.o. daily, Lipitor 40 mg p.o. at bedtime, Coreg 3.125 mg p.o. b.i.d., Lasix 40 mg p.o. daily, hydralazine 50 mg t.i.d. CONTRAINDICATIONS: None. CODE STATUS: FULL CODE. 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 Jiang was consulted while in hospital. TEST RESULTS PENDING ON DISCHARGE: MRI brain. DISCHARGE PLAN: Post hospital, patient will follow up with primary care physician in 1 or 2 weeks. HOSPITAL COURSE: A 62-year-old male with above-mentioned medical problem who was admitted by me. Pl ease see my HPI for further details. This patient presented with dysequilibrium, some visual symptom s and he had horizontal nystagmus and he was also having some difficulty performing cerebellar sign a nd that is why we suspected central etiology for his presentation. We admitted this patient in the h ospital under stroke floor. His neuro examination remained normal. His telemetry remained unremarka ble. The patient stayed extra in hospital because MRI machine was broken in our hospital. Subsequen tly, we did MRI today at [facility]. Official MRI report is pending. Neurology saw this patient. This patient is overall doing very well. During this admission, we noted that his pulse was running slow and that is why we reduced Coreg to half dose and his blood pressure was runn ing high, that is why we increased hydralazine to 50 mg 3 times daily. Rest of medication was contin ued as per previous. Aspirin was added. Antivert is given to use on a p.r.n. basis for vertigo. If MRI is completely unremarkable, then we will consider discharging him home and in that case, patie nt will need outpatient ENT followup for vestibular rehabilitation. The patient is seen and examined at bedside today. REVIEW OF SYSTEMS: Reviewed with him and negative. PHYSICAL EXAMINATION: VITAL SIGNS: Currently, temperature 97.8, pulse 54, blood pressure 156/88, saturation 95% on room ai r, weight 303 pounds. GENERAL: The patient is currently alert, awake, no obvious acute distress. HEAD: Normocephalic, atraumatic. EYES: Pupils round, reactive to light. Mild horizontal nystagmus noted. NECK: Supple. No JVD. LUNGS: Clear to auscultation without any rhonchi or rales. CARDIAC: S1, S2 regular without any murmur. ABDOMEN: Obesity limiting examination, but no organomegaly, no peritoneal sign. EXTREMITIES: No edema. NEUROLOGIC: Nonfocal examination other than horizontal nystagmus and some unsteadiness. Patient will be discharged later on today if MRI is normal.
--- NOTE | 2018-01-23 13:00 | MRI ---
MRI OF THE BRAIN WITHOUT CONTRAST: COMPARISON: CTA of the head and CT brain 01/21/18. HISTORY: Vision problems for 3 days that have not resolved. The vision has vision that crosses. TIA. TECHNIQUE: Multiplanar, multisequence MR images were obtained of the brain without contrast. FINDINGS: There are gyriform areas of high FLAIR signal and restricted diffusion involving the cortex of the bi lateral parietal lobes, right greater than left. This also involves to a lesser extent the right occ ipital lobe. There are a few foci of high FLAIR signal in the bilateral parietal periventricular whi te matter which do not demonstrated restricted diffusion. There is relative sparing of the white mat ter in the areas of gyriform restricted diffusion and FLAIR signal of the parietal regions. There is no evidence of hydrocephalus, intracranial hemorrhage, or extraaxial fluid collection. The expected flow voids are present. The corpus callosum, pituitary, and craniocervical junction are unr emarkable. The calvarium and overlying soft tissues are unremarkable. The visualized paranasal sinuses and mast oid air cells are well aerated. IMPRESSION: Abnormal restricted diffusion and FLAIR signal in the bilateral parietal lobes as well as partially i nvolving the right occipital lobe. These are not confluent infarctions as would be typically seen wi th an acute infarction. However, a watershed-type infarction is still a possibility. Other causes f or gyriform cortical enhancement include hypoglycemia, acute hypertensive encephalopathy/posterior re versible edema syndrome (PRES should include the occipital lobes as well as the posterior parietal lo bes), encephalitis, and an atypical infectious process such as Creutzfeldt-Prince disease. An MRI of t he brain with contrast is recommended for further differentiation. POS: ERIKA
[2018-01-23] MEDS: HumaLOG 300 UNITS/3 ML VIAL SC PRN (14:04)
--- NOTE | 2018-01-23 16:56 | MRI ---
MRI OF BRAIN PERFORMED WITH CONTRAST ENHANCEMENT: 01/23/18 COMPARISON: A noncontrast MRI done earlier today which showed restricted diffusion in the occipital lobes and ri ght parietal region. Postcontrast images do not show any abnormalities in the areas in question. No abnormal enhancement t hat would suggest any type of cerebritis and there is no abnormal enhancement of the meninges in this region. IMPRESSION: Unremarkable contrast MRI of the brain. No abnormalities seen in the regions of restricted diffusion noted on the precontrast study. POS: ERIKA
[2018-01-23 17:11] VITALS: TEMP 97.5
--- NOTE | 2018-01-23 17:50 | PRG ---
DATE OF SERVICE: 01/23/2018 SUBJECTIVE: Mr. Harris is a pleasant 62-year-old male, who presented with episode of vision changes with intermittent episodes of diplopia and headaches. He reports that he continues to have vision changes. He also continues to have feeling of confusion. There has not been any change in hi s headaches, chest pain, palpitation, numbness, tingling or weakness. PHYSICAL EXAMINATION: VITAL SIGNS: Blood pressure of 145/76, pulse of 53, temperature of 98, respirations of 18, O2 sat 97 % on room air. GENERAL: Well-developed, well-nourished male, in no apparent distress. RESPIRATORY: Clear to auscultation bilaterally. CARDIOVASCULAR: Regular rate and rhythm. NEUROLOGIC: Essentially unchanged when compared to yesterday. IMAGING STUDIES: MRI brain without contrast was reviewed, which showed restricted diffusion in the b ilateral posterior parietal region and occipital region. Per Radiology, this could be suggestive of acute ischemic infarct, this could also be watershed type ischemic infarct as well as could be second robin to hypertensive encephalopathy resulting in posterior reversible leukoencephalopathy syndrome. IMPRESSION: 1. Bilateral occipital lobe ischemic infarct. 2. Vision abnormality, due to #1. 3. Malignant hypertension. ASSESSMENT AND PLAN: Mr. Harris is a pleasant 62-year-old male, who presented with the epis ode of visual abnormalities. His MRI did show restricted diffusion in bilateral occipital region sug gestive of acute ischemic infarct. It is located in the cortical aspect of the occipital region, whi ch is concerning for possible posterior reversible encephalopathy syndrome. I would recommend obtain ing MRI brain with contrast to evaluate for this lesion. If MRI brain with contrast is normal, then patient is okay to be discharged to home. I will recommend increasing his aspirin to 325 mg daily fo r secondary stroke prevention. He will need outpatient neurology followup in 4-6 weeks post-discharg e. I have advised the patient that he may need another MRI done in 6 weeks to reevaluate the lesion noted on the current MRI scan. I have discussed with the patient about secondary stroke risk factors and explained that he needs to control them to prevent future stroke from happening. No further laura rological workup needed at this time. Thank you for your consultation.
[2018-01-23 18:01] VITALS: BP 156/88
--- NOTE | 2018-01-24 18:06 | CON ---
DATE OF CONSULTATION: 01/22/2018 REFERRING PHYSICIAN: Dr. Amalia Sullivan. REASON FOR CONSULTATION: Dysequilibrium. HISTORY OF PRESENT ILLNESS: Mr. Harris is a pleasant 62-year-old male who has been consulte d for evaluation of disequilibrium. The patient reports that on yesterday, he was driving and notice d that his vision was getting distorted. He also noticed the images were overlapping each other. He noted that while driving the lanes were merging on to each other and he could not tell the two lanes apart. He also noticed that looking at distance, vision got worse. He started noticing of h is vision. He also complained of having headache in the right temporal occipital region. This was n onradiating. He denied any prior history of headaches. He became nauseous and was complaining of perez ving lightheadedness. He has no prior history of migraine headache. difficulty with speech an d swallowing. He does feel little off balance while walking. PAST MEDICAL HISTORY: Significant for hypertension, diabetes, coronary artery disease chronic diastolic heart failure, dyslipidemia, and GERD. PAST SURGICAL HISTORY: Significant for right ankle replacement surgery, cardiac catheterization, his tory of skin grafting. SOCIAL HISTORY: Drinks socially. He denies smoking or illicit drug use. He is . FAMILY HISTORY: Noncontributory. CURRENT MEDICATIONS: Please review MAR. ALLERGIES: No known drug allergies. REVIEW OF SYSTEMS: As mentioned in history of present illness. PHYSICAL EXAMINATION: VITAL SIGNS: Blood pressure of 159/81, pulse of 64, temperature of 97.5, respirations of 16, O2 sats are 95% on room air. GENERAL: Well-developed, well-nourished male, in no apparent distress. RESPIRATORY: Clear to auscultation bilaterally. CARDIOVASCULAR: Regular rate and rhythm. NEUROLOGIC: Speech and language: Fluent speech. Cranial nerves: Pupils are 3 mm and reacti ve. Visual dumont are intact. External muscles are intact. No nystagmus is noted. Face is symmetr ic. Tongue midline. He has 5/5 strength in both upper and lower extremities bilaterally. 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 Gait and Romberg are normal. LABORATORY DATA: Reviewed, which included CBC, CMP, urinalysis, and lipid profile, which is signific ant for glucose of 147, cholesterol 159, LDL of 69, triglycerides of 296, HDL 31, otherwise unremarka ble. IMAGING STUDIES: CT head without contrast was reviewed, which showed no acute intracranial abnormali ty. CT of the reviewed, which showed no acute IMPRESSION: 1. Visual changes. 2. Headache. 3. Malignant hypertension . PLAN: Mr. Harris is a pleasant 62-year-old male who presented with the two-day history of v ision changes with diplopia and headaches. This could be indicative of acute ischemic event or hyper tensive urgency as his blood pressure is extremely high. This can also be aura with headache. At this time, I would recommend obtaining MRI of brain without contrast and rule out acute ischemic event. If this is normal, I would recommend controlling his blood pressure with a goal of 120-140 sy stolic. He may need outpatient further evaluation with his eyes to rule out any eye pathology as a cause for his symptoms.
== END 2018-01-23 18:49 | disposition home or self-care (01) | DRG 64 ==
LOC: ERS 11:06 → 2SE 14:12
PROVIDERS: ADMIT Internal Medicine; ATTEND Internal Medicine
DX: I63.9 Cerebral infarction, unspecified (principal); I67.83 Posterior reversible encephalopathy syndrome; Z68.41 Body mass index [BMI] 40.0-44.9, adult; I13.0 Hypertensive heart and chronic kidney disease with heart failure and stage 1 through stage 4 chronic kidney disease, or unspecified chronic kidney disease; I50.32 Chronic diastolic (congestive) heart failure; R42 Dizziness and giddiness; E87.5 Hyperkalemia; E66.01 Morbid (severe) obesity due to excess calories; I10 Essential (primary) hypertension; K21.9 Gastro-esophageal reflux disease without esophagitis; E78.5 Hyperlipidemia, unspecified; N18.3 Chronic kidney disease, stage 3 (moderate); I25.10 Atherosclerotic heart disease of native coronary artery without angina pectoris; E11.22 Type 2 diabetes mellitus with diabetic chronic kidney disease; B19.20 Unspecified viral hepatitis C without hepatic coma; Z82.49 Family history of ischemic heart disease and other diseases of the circulatory system
CPT/HCPCS: 36415; 36416; 70450; 70496; 70498; 70551; 70552; 80048; 80053; 80061; 81003; 82553; 84484; 85025; 93005; G8978-GP-CI; G8979-GP-CI; G8980-GP-CI; G8987-GO-CH; G8988-GO-CH; G8989-GO-CH; J1650

== ENCOUNTER 2020-09-11 16:42 | Emergency (ER) | payer MEDICARE ==
[2020-09-11] MEDS ORDERED: levETIRAcetam in NS 100 ML ONE (18:12)
[2020-09-11 18:21] LABS: #Eosinphils 0.2 thou/uL (0.0-0.7); #Lymphocytes 1.4 thou/uL (1.20-3.40); #Monocytes 0.8 thou/uL (0.11-0.59); #Neutrophils 7.7 thou/uL (1.40-6.50); %Basophils 0.5 % (0.0-1.0); %Eosinophils 2.1 % (0.0-10.0); %Lymphocytes 13.7 % (21.0-51.0); %Monocytes 8.2 % (0.0-10.0); %Neutrophils 75.5 % (42.0-75.0); Hemoglobin 14.7 g/dL (14.0-18.0); Mean Corpuscular HGB CONC 32.4 g/dL (32.0-36.0); Mean Corpuscular Hemoglobin 31.1 pg (27.0-31.0); Mean Corpuscular Volume 95.9 fL (78.0-98.0); Mean Platelet Volume 6.9 fL (7.4-10.4); Platelet Count 207 thou/uL (130-400); RBC Distribution Width 14.5 % (11.5-14.5); Red Blood Cell (RBC) Count 4.73 mill/uL (4.70-6.10); White Blood Cell (WBC) Count 10.2 thou/uL (4.8-10.8)
[2020-09-11 18:43] LABS: Anion Gap 16 mmol/L (10-20); BUN (Urea Nitrogen) 13 mg/dL (8.4-25.7); Calc. Creatinine Clearance 0 mL/min (70-130); Calcium 9.2 mg/dL (7.8-10.44); Carbon Dioxide 22 mmol/L (23-31); Chloride 102 mmol/L (98-107); Glucose 112 mg/dL (80-115); Potassium 4.4 mmol/L (3.5-5.1); Sodium 136 mmol/L (136-145)
== END 2020-09-11 19:10 | disposition home or self-care (01) ==
LOC: ERS 16:42
DX: G40.909 Epilepsy, unspecified, not intractable, without status epilepticus (principal); E11.9 Type 2 diabetes mellitus without complications; E66.9 Obesity, unspecified; I11.0 Hypertensive heart disease with heart failure; I50.9 Heart failure, unspecified; Z86.73 Personal history of transient ischemic attack (TIA), and cerebral infarction without residual deficits; Z79.84 Long term (current) use of oral hypoglycemic drugs; Z79.899 Other long term (current) drug therapy
CPT/HCPCS: 36415; 70450; 96365; J1953

== ENCOUNTER 2021-01-09 19:00 | Outpatient (CLI) | payer MEDICARE | END 2021-01-09 19:01 | disposition home or self-care (01) | LOC: SLEEPLAB 19:00 | PROVIDERS: ATTEND Family Medicine | DX: G47.33 Obstructive sleep apnea (adult) (pediatric) (principal); R06.83 Snoring; R53.83 Other fatigue; R09.89 Other specified symptoms and signs involving the circulatory and respiratory systems; E66.9 Obesity, unspecified; F32.9 Major depressive disorder, single episode, unspecified; G47.00 Insomnia, unspecified; I10 Essential (primary) hypertension; I63.9 Cerebral infarction, unspecified; E11.9 Type 2 diabetes mellitus without complications | CPT/HCPCS: 95811 ==

== ENCOUNTER 2021-06-20 09:48 | Emergency (ER) | payer MEDICARE ==
[~2021-06-20 09:48] MED LIST: GASTROGRAFIN 30 ML BOT ONE; Iopamidol 370 76% 100 ML VIAL ONE
[2021-06-20 10:58] LABS: Bilirubin 1+ (Negative); Blood, Urine Trace (Negative); Clarity Turbid (Clear); Glucose, Urine (Dipstick) Normal (Negative); Ketone, Urine 10 mg/dL (Negative); Leukocyte 500 Leu/uL (Negative); Nitrite Negative (Negative); Protein, Urine (Dipstick) 300 mg/dL (Neg-Trace); Specific Gravity, Urine 1.033 (1.002-1.036); Squamous Epithelial 0-3 HPF (0-3); Urobilinogen 6 mg/dL (Less than 2)
[2021-06-20 10:59] LABS: #Basophils 0.1 thou/uL (0.0-0.2); #Eosinphils 0.2 thou/uL (0.0-0.7); #Lymphocytes 1.5 thou/uL (1.20-3.40); #Monocytes 1.2 thou/uL (0.11-0.59); #Neutrophils 11.7 thou/uL (1.40-6.50); %Basophils 0.4 % (0.0-1.0); %Eosinophils 1.2 % (0.0-10.0); %Lymphocytes 10.2 % (21.0-51.0); %Monocytes 8.5 % (0.0-10.0); %Neutrophils 79.8 % (42.0-75.0); Hemoglobin 15.4 g/dL (14.0-18.0); Mean Corpuscular HGB CONC 32.1 g/dL (32.0-36.0); Mean Corpuscular Hemoglobin 33.1 pg (27.0-31.0); Mean Platelet Volume 6.4 fL (7.4-10.4); Platelet Count 179 thou/uL (130-400); Red Blood Cell (RBC) Count 4.65 mill/uL (4.70-6.10); White Blood Cell (WBC) Count 14.6 thou/uL (4.8-10.8)
[2021-06-20 11:06] LABS: Bacteria/HPF 1+ HPF (None Seen); WBC/HPF 21-50 HPF (0-3)
[2021-06-20 11:17] LABS: ALT (SGPT) 13 U/L (8-55); AST (SGOT) 14 U/L (5-34); Albumin 4.1 g/dL (3.4-4.8); Alkaline Phosphatase 74 U/L (40-110); Anion Gap 16 mmol/L (10-20); BUN (Urea Nitrogen) 11 mg/dL (8.4-25.7); Bilirubin, Total 2.1 mg/dL (0.2-1.2); Calc. Creatinine Clearance 0 mL/min (70-130); Calcium 9.5 mg/dL (7.8-10.44); Carbon Dioxide 26 mmol/L (23-31); Chloride 99 mmol/L (98-107); Globulin 3.5 g/dL (2.4-3.5); Glucose 142 mg/dL (80-115); Potassium 3.7 mmol/L (3.5-5.1); Protein, Total 7.6 g/dL (5.8-8.1); Sodium 137 mmol/L (136-145)
[2021-06-20] MEDS ORDERED: cefTRIAXone\\ROCEPHIN 2 GM VIAL ONE (12:05)
== END 2021-06-20 14:20 | disposition home or self-care (01) ==
LOC: ERS 09:48
DX: N30.00 Acute cystitis without hematuria (principal); K52.9 Noninfective gastroenteritis and colitis, unspecified; K62.89 Other specified diseases of anus and rectum; E11.9 Type 2 diabetes mellitus without complications; I11.0 Hypertensive heart disease with heart failure; I50.9 Heart failure, unspecified; E66.9 Obesity, unspecified; Z68.45 Body mass index [BMI] 70 or greater, adult; Z87.19 Personal history of other diseases of the digestive system; Z86.73 Personal history of transient ischemic attack (TIA), and cerebral infarction without residual deficits; Z79.84 Long term (current) use of oral hypoglycemic drugs; Z79.899 Other long term (current) drug therapy
CPT/HCPCS: 36415; 74177; 80053; 81003; 81015; 85025; 96365; J0696

== ENCOUNTER 2022-07-30 11:25 | Outpatient (CLI) | payer OTHER ==
[2022-07-30 13:54] LABS: #Basophils 0.1 10x3/uL (0.0-0.2); #Eosinphils 0.6 10x3/uL (0.0-0.5); #Monocytes 0.7 10x3/uL (0.0-1.1); #Neutrophils 5.1 10x3/uL (1.5-8.4); %Eosinophils 7.4 % (0.0-6.0); %Lymphocytes 22.1 % (18.0-47.0); %Monocytes 8.2 % (0.0-10.0); %Neutrophils 60.8 % (40.0-75.0); Hemoglobin 15.8 g/dL (13.5-17.5); Mean Corpuscular HGB CONC 32.5 g/dL (32.0-36.0); Mean Corpuscular Hemoglobin 30.2 pg (27.0-33.0); Mean Corpuscular Volume 92.9 fl (81.2-95.1); Mean Platelet Volume 9.6 fl (7.4-10.4); Platelet Count 226 10x3/uL (150-450); Red Blood Cell (RBC) Count 5.23 10x6/uL (4.32-5.72); White Blood Cell (WBC) Count 8.3 10x3/uL (3.5-10.5)
[2022-07-30 14:04] LABS: Anion Gap 16 mmol/L (10-20); BUN (Urea Nitrogen) 16 mg/dL (8.4-25.7); Calc. Creatinine Clearance 0 mL/min (70-130); Calcium 9.3 mg/dL (7.8-10.44); Carbon Dioxide 25 mmol/L (23-31); Chloride 105 mmol/L (98-107); Estimated GFR 96; Glucose 140 mg/dL (80-115); Potassium 4.5 mmol/L (3.5-5.1); Sodium 141 mmol/L (136-145)
== END 2022-07-30 11:26 | disposition home or self-care (01) ==
LOC: LABBT 11:25
PROVIDERS: ATTEND Internal Medicine Cardiovascular Disease
DX: Z01.818 Encounter for other preprocedural examination (principal); I48.0 Paroxysmal atrial fibrillation
CPT/HCPCS: 80048; 85025; 93005; 93010

== ENCOUNTER 2022-07-31 06:16 | Day surgery (SDC) | payer OTHER ==
[2022-07-29 10:33] VITALS: BMI 38.6
[2022-07-31] MEDS ORDERED: PROPOFOL 40 ML ONE (07:59)
== END 2022-07-31 09:53 | disposition home or self-care (01) ==
LOC: SDC 06:16
PROVIDERS: ATTEND Internal Medicine Cardiovascular Disease
PROC: B246ZZ4 Ultrasonography of Right and Left Heart, Transesophageal (ICD-10-PCS; principal; 2022-07-31)
PROC: 5A2204Z Restoration of Cardiac Rhythm, Single (ICD-10-PCS; 2022-07-31)
DX: I48.0 Paroxysmal atrial fibrillation (principal); I34.0 Nonrheumatic mitral (valve) insufficiency; I70.0 Atherosclerosis of aorta; I10 Essential (primary) hypertension; K21.9 Gastro-esophageal reflux disease without esophagitis; E11.9 Type 2 diabetes mellitus without complications; G40.909 Epilepsy, unspecified, not intractable, without status epilepticus; I25.10 Atherosclerotic heart disease of native coronary artery without angina pectoris; E78.2 Mixed hyperlipidemia; G47.33 Obstructive sleep apnea (adult) (pediatric); E66.9 Obesity, unspecified; Z68.38 Body mass index [BMI] 38.0-38.9, adult; Z86.14 Personal history of Methicillin resistant Staphylococcus aureus infection; Z86.73 Personal history of transient ischemic attack (TIA), and cerebral infarction without residual deficits; Z79.01 Long term (current) use of anticoagulants; Z79.02 Long term (current) use of antithrombotics/antiplatelets; Z79.84 Long term (current) use of oral hypoglycemic drugs; Z79.899 Other long term (current) drug therapy
CPT/HCPCS: 92960; 93005; 93010; 93312; J2704

== ENCOUNTER 2022-10-30 21:44 | Observation (INO) | payer OTHER ==
[2022-10-31] MEDS ORDERED: HumaLOG 300 UNITS/3 ML VIAL SC PRN ×2 (01:13)
[2022-10-31] MEDS ORDERED: Calcium Carbonate 500 MG ChewTAB PO PRN (01:13)
[2022-10-31] MEDS ORDERED: Dextrose 50% Abboject 50 ML SYRINGE SLOW IVP PRN (01:13)
[2022-10-31] MEDS ORDERED: Acetaminophen 325 MG TAB PO PRN (01:13)
[2022-10-31] MEDS ORDERED: Dextrose 5% in Water 1,000 ML IV PRN (01:13)
[2022-10-31] MEDS ORDERED: Glucagon 1 MG/ML KIT IM PRN (01:13)
[2022-10-31] MEDS ORDERED: Ondansetron ODT 4 MG TAB PO PRN (01:13)
[2022-10-31] MEDS ORDERED: Ondansetron PF 4 MG/2 ML Vial IVP PRN (01:13)
[2022-10-31] MEDS ORDERED: Nitroglycerin 0.4 MG TAB (25 Tab Bottle) SL PRN (01:13)
[2022-10-31] MEDS: Morphine 4 MG/ML VIAL SLOW IVP PRN ×3 (02:25→10:44)
[2022-10-31] MEDS: hydrOXYzine 25 MG TAB PO PRN ×2 (02:25→20:07)
[2022-10-31 05:22] LABS: #Basophils 0.1 thou/uL (0.0-0.2); #Eosinphils 0.2 thou/uL (0.0-0.7); #Monocytes 1.5 thou/uL (0.11-0.59); #Neutrophils 9.8 thou/uL (1.40-6.50); %Basophils 0.6 % (0.0-1.0); %Eosinophils 1.5 % (0.0-10.0); %Lymphocytes 10.1 % (21.0-51.0); %Monocytes 11.3 % (0.0-10.0); Hemoglobin 14.1 g/dL (14.0-18.0); Mean Corpuscular HGB CONC 31.9 g/dL (32.0-36.0); Mean Corpuscular Hemoglobin 29.5 pg (27.0-31.0); Mean Corpuscular Volume 92.5 fl (78.0-98.0); Mean Platelet Volume 9.7 fL (7.4-10.4); Platelet Count 168 10x3/uL (130-400); RBC Distribution Width 17.8 % (11.5-14.5); Red Blood Cell (RBC) Count 4.78 mill/uL (4.70-6.10); White Blood Cell (WBC) Count 12.8 10x3/uL (4.8-10.8)
[2022-10-31 06:02] LABS: Anion Gap 15 mmol/L (10-20); BUN (Urea Nitrogen) 16 mg/dL (8.4-25.7); Calc. Creatinine Clearance 142 mL/min (70-130); Calcium 8.8 mg/dL (7.8-10.44); Carbon Dioxide 21 mmol/L (23-31); Chloride 107 mmol/L (98-107); Estimated GFR 85; Glucose 144 mg/dL (80-115); Potassium 4.8 mmol/L (3.5-5.1); Sodium 138 mmol/L (136-145)
[2022-10-31] MEDS: levETIRAcetam 500 mg/5 ml Oral Solution PO SCH ×2 (10:13→20:04)
[2022-10-31] MEDS: Isosorbide Dinitrate 5 MG TAB PO SCH (10:13)
[2022-10-31] MEDS: Lisinopril 20 MG TAB PO SCH (10:13)
[2022-10-31] MEDS: Furosemide 40 MG TAB PO SCH (10:14)
[2022-10-31] MEDS: Clopidogrel Bisulfate 75 MG TAB PO SCH (10:14)
[2022-10-31] MEDS: Colchicine 0.6 MG TAB PO SCH ×2 (10:14→20:05)
[2022-10-31] MEDS: Apixaban 5 MG TAB PO SCH ×2 (10:14→20:05)
[2022-10-31 10:42] LABS: Troponin I 2.729 ng/mL (< 0.028)
[2022-10-31] MEDS ORDERED: Ketorolac Tromethamine 30 MG/ML VIAL IVP SCH (15:00)
[2022-10-31] MEDS: Ketorolac Tromethamine 30 MG/ML VIAL IVP PRN (20:07)
[2022-10-31] MEDS ORDERED: Atorvastatin Calcium 40 MG TAB PO SCH (21:00)
[2022-10-31] MEDS ORDERED: cloNIDine 0.2 MG TAB PO SCH (21:00)
[2022-11-01] MEDS: Ketorolac Tromethamine 30 MG/ML VIAL IVP PRN (03:27)
[2022-11-01 03:39] VITALS: BMI 40.5
[2022-11-01 04:29] LABS: #Basophils 0.1 thou/uL (0.0-0.2); #Eosinphils 0.3 thou/uL (0.0-0.7); #Monocytes 1.1 thou/uL (0.11-0.59); #Neutrophils 7.4 thou/uL (1.40-6.50); %Basophils 0.6 % (0.0-1.0); %Lymphocytes 15.4 % (21.0-51.0); %Monocytes 10.3 % (0.0-10.0); %Neutrophils 70.1 % (42.0-75.0); Hemoglobin 13.4 g/dL (14.0-18.0); Mean Corpuscular HGB CONC 32.8 g/dL (32.0-36.0); Mean Corpuscular Hemoglobin 30.1 pg (27.0-31.0); Mean Corpuscular Volume 91.9 fl (78.0-98.0); Mean Platelet Volume 9.6 fL (7.4-10.4); Platelet Count 138 10x3/uL (130-400); RBC Distribution Width 17.2 % (11.5-14.5); Red Blood Cell (RBC) Count 4.45 mill/uL (4.70-6.10); White Blood Cell (WBC) Count 10.5 10x3/uL (4.8-10.8)
[2022-11-01 04:53] LABS: Anion Gap 14 mmol/L (10-20); BUN (Urea Nitrogen) 13 mg/dL (8.4-25.7); Calc. Creatinine Clearance 148 mL/min (70-130); Calcium 8.9 mg/dL (7.8-10.44); Carbon Dioxide 22 mmol/L (23-31); Chloride 107 mmol/L (98-107); Estimated GFR 89; Glucose 122 mg/dL (80-115); Potassium 3.7 mmol/L (3.5-5.1); Sodium 139 mmol/L (136-145)
[2022-11-01 08:12] VITALS: TEMP 97.4
[2022-11-01] MEDS: Apixaban 5 MG TAB PO SCH (10:13)
[2022-11-01] MEDS: Clopidogrel Bisulfate 75 MG TAB PO SCH (10:15)
[2022-11-01] MEDS: levETIRAcetam 500 mg/5 ml Oral Solution PO SCH (10:15)
[2022-11-01] MEDS: Colchicine 0.6 MG TAB PO SCH (10:15)
[2022-11-01] MEDS: Furosemide 40 MG TAB PO SCH (10:19)
[2022-11-01] MEDS: Lisinopril 20 MG TAB PO SCH (10:19)
[2022-11-01] MEDS: Isosorbide Dinitrate 5 MG TAB PO SCH (10:19)
[2022-11-01 10:21] VITALS: BP 154/71
== END 2022-11-01 11:10 | disposition home or self-care (01) ==
LOC: 2NO 21:44
PROVIDERS: ADMIT Student in an Organized Health Care Education/Training Program; ATTEND Internal Medicine
DX: I48.19 Other persistent atrial fibrillation (principal); R07.89 Other chest pain; I34.0 Nonrheumatic mitral (valve) insufficiency; I36.1 Nonrheumatic tricuspid (valve) insufficiency; I25.10 Atherosclerotic heart disease of native coronary artery without angina pectoris; G40.909 Epilepsy, unspecified, not intractable, without status epilepticus; G47.33 Obstructive sleep apnea (adult) (pediatric); I11.0 Hypertensive heart disease with heart failure; I50.32 Chronic diastolic (congestive) heart failure; E78.5 Hyperlipidemia, unspecified; E11.9 Type 2 diabetes mellitus without complications; E66.9 Obesity, unspecified; E78.00 Pure hypercholesterolemia, unspecified; Z79.01 Long term (current) use of anticoagulants; Z79.899 Other long term (current) drug therapy; Z86.14 Personal history of Methicillin resistant Staphylococcus aureus infection
CPT/HCPCS: 80048 ×2; 82962 ×2; 84484; 85025 ×2; 86140; 93306; 94760 ×2; 96374; 96375; 96376 ×2; G0378 ×2; 36415; 36416; J1885; J2270